=== PATIENT | female | born 1965 | race Caucasian/White ===

== ENCOUNTER → 2017-09-07 07:57 | Outpatient (CLI) | payer OTHER ==
[~2017-09-07 07:57] MED LIST: CATAFLAM50 MG PO; CIPRO500 MG PO; DICY20TA PO; FLEXERIL10 MG PO; FLONASE16 GM NS; INTESTINEX680 MG PO; LEVSIN/SL0.125 MG SL; PREVACID30 MG PO; PRILOSEC 20 MG PO; PRILOSEC10 MG PO; PRILOSEC2.5 MG; PRILOSEC2.5 MG PO; SYNTHROID125 MCG; SYNTHROID137 MCG PO; SYNTHROID150 MCG; SYNTHROID150 MCG PO; TOBREX 0.30.15 MG/DR OP; URETRON D-S TAB1 TAB PO; VOLTAREM 50 MG PO; ZANAFLEX2 MG PO; ZITHROMAX TRI-500 MG PO; ZYRTEC10 MG PO
== END | disposition home or self-care (01) ==
LOC: LAB 07:57
DX: E03.8 Other specified hypothyroidism (principal)

== ENCOUNTER → 2017-11-14 07:27 | Outpatient (CLI) | payer OTHER | END | disposition home or self-care (01) | LOC: LAB 07:27 | DX: N95.1 Menopausal and female climacteric states (principal); E78.5 Hyperlipidemia, unspecified; E03.9 Hypothyroidism, unspecified; M61.00 Myositis ossificans traumatica, unspecified site; N39.0 Urinary tract infection, site not specified ==

== ENCOUNTER 2017-11-23 09:01 | Outpatient (CLI) | payer OTHER | END 2017-11-23 09:11 | disposition home or self-care (01) | LOC: MAMO-SONO 09:01 | DX: Z12.31 Encounter for screening mammogram for malignant neoplasm of breast (principal); N60.12 Diffuse cystic mastopathy of left breast; N60.11 Diffuse cystic mastopathy of right breast ==

== ENCOUNTER 2017-12-16 15:10 | Outpatient (CLI) | payer OTHER | END 2017-12-16 15:36 | disposition home or self-care (01) | LOC: SONOGRAMA 15:10 | DX: N60.12 Diffuse cystic mastopathy of left breast (principal); N60.11 Diffuse cystic mastopathy of right breast ==

== ENCOUNTER 2018-01-09 07:10 | Outpatient (CLI) | payer OTHER | END 2018-01-09 10:51 | disposition home or self-care (01) | LOC: LAB 07:10 | DX: E03.8 Other specified hypothyroidism (principal); E11.65 Type 2 diabetes mellitus with hyperglycemia; E78.00 Pure hypercholesterolemia, unspecified ==

== ENCOUNTER 2018-01-17 10:06 | Outpatient (CLI) | payer OTHER | END 2018-01-17 10:17 | disposition home or self-care (01) | LOC: LAB 10:06 | DX: R50.9 Fever, unspecified (principal); J11.1 Influenza due to unidentified influenza virus with other respiratory manifestations ==

== ENCOUNTER → 2018-05-09 07:19 | Outpatient (CLI) | payer OTHER | END | disposition home or self-care (01) | LOC: LAB 07:19 | DX: E89.0 Postprocedural hypothyroidism (principal) ==

== ENCOUNTER 2018-06-20 09:34 | Outpatient (CLI) | payer OTHER | END 2018-06-20 18:58 | disposition home or self-care (01) | LOC: LAB 09:34 | DX: L50.8 Other urticaria (principal); E03.8 Other specified hypothyroidism ==

== ENCOUNTER 2018-06-29 10:24 | Emergency (ER) | payer OTHER ==
[~2018-06-29] VITALS: Ht 157.5 cm; Wt 68.0 kg
== END 2018-06-29 12:08 | disposition home or self-care (01) ==
LOC: ER 10:24
DX: M54.5 Low back pain (principal)

== ENCOUNTER → 2018-09-07 07:25 | Outpatient (CLI) | payer OTHER | END | disposition home or self-care (01) | LOC: LAB 07:25 | DX: E03.8 Other specified hypothyroidism (principal); E78.00 Pure hypercholesterolemia, unspecified ==

== ENCOUNTER 2018-11-30 08:00 | Outpatient (CLI) | payer OTHER | END 2018-11-30 15:00 | disposition home or self-care (01) | LOC: LAB 08:00 | DX: M81.0 Age-related osteoporosis without current pathological fracture (principal); E78.5 Hyperlipidemia, unspecified; E03.8 Other specified hypothyroidism; N39.0 Urinary tract infection, site not specified; N95.1 Menopausal and female climacteric states ==

== ENCOUNTER → 2018-12-05 | Outpatient (CLI) | payer OTHER | END | disposition home or self-care (01) | LOC: MAMO-SONO 14:13 | DX: N60.11 Diffuse cystic mastopathy of right breast (principal); N60.12 Diffuse cystic mastopathy of left breast; Z80.3 Family history of malignant neoplasm of breast; Z12.31 Encounter for screening mammogram for malignant neoplasm of breast ==

== ENCOUNTER → 2019-01-18 07:22 | Outpatient (CLI) | payer OTHER | END | disposition home or self-care (01) | LOC: LAB 07:22 | DX: E03.8 Other specified hypothyroidism (principal); E11.65 Type 2 diabetes mellitus with hyperglycemia ==

== ENCOUNTER → 2019-01-24 07:21 | Outpatient (CLI) | payer OTHER | END | disposition home or self-care (01) | LOC: LAB 07:21 | DX: E78.00 Pure hypercholesterolemia, unspecified (principal) ==

== ENCOUNTER → 2019-02-13 11:01 | Outpatient (CLI) | payer OTHER | END | disposition home or self-care (01) | LOC: LAB 10:37 | DX: J11.1 Influenza due to unidentified influenza virus with other respiratory manifestations (principal); A49.3 Mycoplasma infection, unspecified site ==

== ENCOUNTER 2019-03-12 07:22 | Emergency (ER) | payer OTHER ==
[~2019-03-12] VITALS: Ht 160 cm; Wt 79.4 kg
== END 2019-03-12 17:26 | disposition home or self-care (01) ==
LOC: ER 07:22
DX: K57.32 Diverticulitis of large intestine without perforation or abscess without bleeding (principal); R10.84 Generalized abdominal pain

== ENCOUNTER 2019-03-27 08:53 | Outpatient (CLI) | payer OTHER | END 2019-03-27 08:58 | disposition home or self-care (01) | LOC: LAB 08:53 | DX: E78.00 Pure hypercholesterolemia, unspecified (principal); E11.65 Type 2 diabetes mellitus with hyperglycemia; E03.8 Other specified hypothyroidism; E23.1 Drug-induced hypopituitarism ==

== ENCOUNTER 2019-05-16 08:06 | Outpatient (CLI) | payer OTHER | END 2019-05-16 16:20 | disposition home or self-care (01) | LOC: LAB 08:06 | DX: E03.8 Other specified hypothyroidism (principal) ==

== ENCOUNTER → 2019-07-09 07:24 | Outpatient (CLI) | payer OTHER | END | disposition home or self-care (01) | LOC: LAB 07:01 | DX: E03.8 Other specified hypothyroidism (principal) ==

== ENCOUNTER → 2019-08-21 16:37 | Outpatient (CLI) | payer OTHER | END | disposition home or self-care (01) | LOC: RAD 14:29 | DX: M19.042 Primary osteoarthritis, left hand (principal) ==

== ENCOUNTER → 2019-10-30 08:16 | Outpatient (CLI) | payer OTHER | END | disposition home or self-care (01) | LOC: LAB 08:16 | DX: E03.8 Other specified hypothyroidism (principal); E78.00 Pure hypercholesterolemia, unspecified; E11.65 Type 2 diabetes mellitus with hyperglycemia ==

== ENCOUNTER → 2019-11-27 07:30 | Outpatient (CLI) | payer OTHER | END | disposition home or self-care (01) | LOC: LAB 07:30 | DX: E03.8 Other specified hypothyroidism (principal); R00.2 Palpitations ==

== ENCOUNTER 2019-11-28 08:14 | Outpatient (CLI) | payer OTHER | END 2019-11-28 14:48 | disposition home or self-care (01) | LOC: RAD 08:14 | DX: R00.2 Palpitations (principal); Z12.31 Encounter for screening mammogram for malignant neoplasm of breast; E03.8 Other specified hypothyroidism ==

== ENCOUNTER 2019-12-06 11:34 | Outpatient (CLI) | payer OTHER | END 2019-12-06 11:50 | disposition home or self-care (01) | LOC: SONOGRAMA 11:34 | DX: E04.2 Nontoxic multinodular goiter (principal) ==

== ENCOUNTER → 2020-01-01 09:18 | Outpatient (CLI) | payer OTHER | END | disposition home or self-care (01) | LOC: LAB 12-31 10:01 → EDBD 09:18 → LAB 09:18 | PROVIDERS: ATTEND General Practice | DX: E03.8 Other specified hypothyroidism (principal) ==

== ENCOUNTER → 2020-01-24 08:16 | Outpatient (CLI) | payer OTHER | END | disposition home or self-care (01) | LOC: LAB 08:16 → EDBD 08:16 → LAB 14:38 | PROVIDERS: ATTEND Obstetrics & Gynecology Gynecology | DX: E78.49 Other hyperlipidemia (principal); M81.0 Age-related osteoporosis without current pathological fracture; N39.0 Urinary tract infection, site not specified; E03.8 Other specified hypothyroidism; N95.1 Menopausal and female climacteric states ==

== ENCOUNTER 2020-01-24 12:59 | Outpatient (CLI) | payer OTHER | END 2020-01-24 15:32 | disposition home or self-care (01) | LOC: SONOGRAMA 12:59 → EDBD 12:59 → SONOGRAMA 15:32 | PROVIDERS: ATTEND Obstetrics & Gynecology Gynecology | DX: N60.11 Diffuse cystic mastopathy of right breast (principal); N60.12 Diffuse cystic mastopathy of left breast; Z80.3 Family history of malignant neoplasm of breast ==

== ENCOUNTER → 2020-01-28 07:51 | Outpatient (CLI) | payer OTHER | END | disposition home or self-care (01) | LOC: LAB 01-25 16:20 | PROVIDERS: ATTEND General Practice | DX: R53.81 Other malaise (principal); M25.50 Pain in unspecified joint ==

== ENCOUNTER 2020-01-31 08:07 | Outpatient (CLI) | payer OTHER | END 2020-01-31 09:14 | disposition home or self-care (01) | LOC: SONOGRAMA 08:07 → MAMO-SONO 13:45 | PROVIDERS: ATTEND General Practice | DX: R10.84 Generalized abdominal pain (principal); R10.2 Pelvic and perineal pain ==

== ENCOUNTER 2020-03-07 06:00 | Day surgery (SDC) | payer OTHER | END 2020-03-07 09:55 | disposition home or self-care (01) | LOC: AMB-ENDOS 06:00 | PROVIDERS: ATTEND Colon & Rectal Surgery | DX: K57.32 Diverticulitis of large intestine without perforation or abscess without bleeding (principal); Z20.828 Contact with and (suspected) exposure to other viral communicable diseases ==

== ENCOUNTER 2020-04-15 08:00 | Outpatient (CLI) | payer OTHER ==
[~2020-04-15 08:00] MED LIST changes: +VOLTAREN100 GM TOP
== END 2020-04-15 15:00 | disposition home or self-care (01) ==
LOC: PPH VACUNA 08:00
DX: Z23 Encounter for immunization (principal)

== ENCOUNTER → 2020-05-01 07:43 | Outpatient (CLI) | payer OTHER | END | disposition home or self-care (01) | LOC: LAB 07:43 | PROVIDERS: ATTEND Obstetrics & Gynecology Gynecology | DX: E78.49 Other hyperlipidemia (principal); E03.8 Other specified hypothyroidism; D50.0 Iron deficiency anemia secondary to blood loss (chronic) ==

== ENCOUNTER 2020-05-19 07:46 | Outpatient (CLI) | payer OTHER | END 2020-05-19 15:00 | disposition home or self-care (01) | LOC: LAB 07:46 | PROVIDERS: ATTEND Internal Medicine | DX: E03.8 Other specified hypothyroidism (principal) ==

== ENCOUNTER → 2020-05-30 07:45 | Outpatient (CLI) | payer OTHER | END | disposition home or self-care (01) | LOC: LAB 07:45 | PROVIDERS: ATTEND Internal Medicine Hematology & Oncology | DX: D50.8 Other iron deficiency anemias (principal); R79.89 Other specified abnormal findings of blood chemistry; R74.02 Elevation of levels of lactic acid dehydrogenase [LDH]; K76.89 Other specified diseases of liver; D51.1 Vitamin B12 deficiency anemia due to selective vitamin B12 malabsorption with proteinuria; D51.0 Vitamin B12 deficiency anemia due to intrinsic factor deficiency; E03.8 Other specified hypothyroidism; E06.3 Autoimmune thyroiditis; R97.0 Elevated carcinoembryonic antigen [CEA]; R97.8 Other abnormal tumor markers; M32.8 Other forms of systemic lupus erythematosus; B20 Human immunodeficiency virus [HIV] disease; B17.8 Other specified acute viral hepatitis; Z11.59 Encounter for screening for other viral diseases; D72.818 Other decreased white blood cell count ==

== ENCOUNTER → 2020-07-10 08:25 | Outpatient (CLI) | payer OTHER | END | disposition home or self-care (01) | LOC: LAB 08:25 | PROVIDERS: ATTEND Internal Medicine | DX: E03.8 Other specified hypothyroidism (principal); E78.49 Other hyperlipidemia; I10 Essential (primary) hypertension; E55.9 Vitamin D deficiency, unspecified; E11.65 Type 2 diabetes mellitus with hyperglycemia ==

== ENCOUNTER 2020-09-16 07:53 | Emergency (ER) | payer OTHER ==
[~2020-09-16] VITALS: Ht 160 cm; Wt 78.0 kg
[2020-09-16] MEDS ORDERED: BACTRIM DS TAB1 EACH PO (08:53)
[2020-09-16] MEDS ORDERED: MUPIROCIN1 G1 TOP (08:53)
[2020-09-16] MEDS ORDERED: KETO10TA2 PO (08:53)
== END 2020-09-16 09:29 | disposition home or self-care (01) ==
LOC: ER 07:53
DX: L03.116 Cellulitis of left lower limb (principal)

== ENCOUNTER 2020-09-19 07:39 | Outpatient (CLI) | payer OTHER ==
[~2020-09-19 07:39] MED LIST changes: +BACTRIM DS TAB1 EACH PO; +KETO10TA2 PO; +MUPIROCIN1 G1 TOP
== END 2020-09-19 18:50 | disposition home or self-care (01) ==
LOC: LAB 07:39
PROVIDERS: ATTEND Internal Medicine
DX: E03.8 Other specified hypothyroidism (principal)

== ENCOUNTER → 2020-11-11 11:52 | Outpatient (CLI) | payer OTHER | END | disposition home or self-care (01) | LOC: LAB 11:26 | PROVIDERS: ATTEND Internal Medicine Hematology & Oncology | DX: I10 Essential (primary) hypertension (principal); D50.8 Other iron deficiency anemias; R79.89 Other specified abnormal findings of blood chemistry; R74.02 Elevation of levels of lactic acid dehydrogenase [LDH]; K76.89 Other specified diseases of liver; D55.0 Anemia due to glucose-6-phosphate dehydrogenase [G6PD] deficiency; D51.8 Other vitamin B12 deficiency anemias; E89.0 Postprocedural hypothyroidism; D72.818 Other decreased white blood cell count ==

== ENCOUNTER 2020-11-25 14:25 | Outpatient (CLI) | payer OTHER | END 2020-11-25 14:33 | disposition home or self-care (01) | LOC: SONOGRAMA 14:25 | PROVIDERS: ATTEND Internal Medicine | DX: E04.2 Nontoxic multinodular goiter (principal) ==

== ENCOUNTER → 2020-12-02 07:50 | Outpatient (CLI) | payer OTHER | END | disposition home or self-care (01) | LOC: LAB 07:50 | PROVIDERS: ATTEND Internal Medicine | DX: E55.9 Vitamin D deficiency, unspecified (principal); I10 Essential (primary) hypertension; E78.49 Other hyperlipidemia; E03.8 Other specified hypothyroidism; E24.0 Pituitary-dependent Cushing's disease ==

== ENCOUNTER 2020-12-08 14:19 | Outpatient (CLI) | payer OTHER | END 2020-12-08 14:28 | disposition home or self-care (01) | LOC: MAMO-SONO 14:19 | PROVIDERS: ATTEND Obstetrics & Gynecology Gynecology | DX: N60.11 Diffuse cystic mastopathy of right breast (principal); N60.12 Diffuse cystic mastopathy of left breast ==

== ENCOUNTER 2020-12-23 07:31 | Outpatient (CLI) | payer OTHER | END 2020-12-23 07:34 | disposition home or self-care (01) | LOC: LAB 07:31 | PROVIDERS: ATTEND Specialist | DX: R79.0 Abnormal level of blood mineral (principal); Z01.818 Encounter for other preprocedural examination; E53.8 Deficiency of other specified B group vitamins; E55.9 Vitamin D deficiency, unspecified; Z11.4 Encounter for screening for human immunodeficiency virus [HIV]; M40.00 Postural kyphosis, site unspecified; R63.4 Abnormal weight loss; K73.8 Other chronic hepatitis, not elsewhere classified; J34.89 Other specified disorders of nose and nasal sinuses; Z32.00 Encounter for pregnancy test, result unknown; D52.8 Other folate deficiency anemias; E53.0 Riboflavin deficiency; E78.00 Pure hypercholesterolemia, unspecified; J15.0 Pneumonia due to Klebsiella pneumoniae; R94.31 Abnormal electrocardiogram [ECG] [EKG] ==

== ENCOUNTER 2020-12-24 08:54 | Outpatient (CLI) | payer OTHER | END 2020-12-24 15:00 | disposition home or self-care (01) | LOC: EKG 08:54 | PROVIDERS: ATTEND Specialist | DX: R94.31 Abnormal electrocardiogram [ECG] [EKG] (principal) ==

== ENCOUNTER 2020-12-26 07:10 | Emergency (ER) | payer OTHER ==
[~2020-12-26] VITALS: Ht 162.6 cm; Wt 79.8 kg
[2020-12-26] MEDS ORDERED: SYNTHROID137 MCG PO (07:18)
== END 2020-12-26 11:03 | disposition home or self-care (01) ==
LOC: ER 07:10
DX: M54.5 Low back pain (principal)

== ENCOUNTER → 2020-12-31 07:47 | Outpatient (CLI) | payer OTHER | END | disposition home or self-care (01) | LOC: LAB 07:47 | PROVIDERS: ATTEND Internal Medicine | DX: E03.8 Other specified hypothyroidism (principal) ==

== ENCOUNTER 2021-01-27 11:04 | Outpatient (CLI) | payer OTHER | END 2021-01-27 11:06 | disposition home or self-care (01) | LOC: SONOGRAMA 11:04 | PROVIDERS: ATTEND Obstetrics & Gynecology Gynecology | DX: N60.11 Diffuse cystic mastopathy of right breast (principal); N60.12 Diffuse cystic mastopathy of left breast ==

== ENCOUNTER 2021-01-29 08:00 | Outpatient (CLI) | payer OTHER | END 2021-01-29 19:00 | disposition home or self-care (01) | LOC: LAB 08:00 | PROVIDERS: ATTEND Specialist | DX: J34.89 Other specified disorders of nose and nasal sinuses (principal); Z01.818 Encounter for other preprocedural examination; R79.0 Abnormal level of blood mineral; Z11.4 Encounter for screening for human immunodeficiency virus [HIV]; R63.4 Abnormal weight loss; K73.8 Other chronic hepatitis, not elsewhere classified; D52.0 Dietary folate deficiency anemia; E78.00 Pure hypercholesterolemia, unspecified ==

== ENCOUNTER → 2021-02-09 07:59 | Outpatient (CLI) | payer OTHER | END | disposition home or self-care (01) | LOC: LAB 02-07 15:06 | DX: E03.8 Other specified hypothyroidism (principal) ==

== ENCOUNTER → 2021-02-16 07:24 | Outpatient (CLI) | payer OTHER | END | disposition home or self-care (01) | LOC: LAB 07:24 | DX: E07.89 Other specified disorders of thyroid (principal) ==

== ENCOUNTER → 2021-03-23 07:33 | Outpatient (CLI) | payer OTHER | END | disposition home or self-care (01) | LOC: LAB 07:33 | PROVIDERS: ATTEND Internal Medicine | DX: E11.65 Type 2 diabetes mellitus with hyperglycemia (principal); E78.49 Other hyperlipidemia; I10 Essential (primary) hypertension; E03.8 Other specified hypothyroidism ==

== ENCOUNTER 2021-04-10 07:32 | Outpatient (CLI) | payer OTHER | END 2021-04-10 08:03 | disposition home or self-care (01) | LOC: LAB 07:32 | PROVIDERS: ATTEND Internal Medicine Hematology & Oncology | DX: E89.0 Postprocedural hypothyroidism (principal); D50.8 Other iron deficiency anemias; R79.89 Other specified abnormal findings of blood chemistry; I10 Essential (primary) hypertension; R74.02 Elevation of levels of lactic acid dehydrogenase [LDH]; K76.89 Other specified diseases of liver; D72.818 Other decreased white blood cell count ==

== ENCOUNTER 2021-04-28 08:00 | Outpatient (CLI) | payer OTHER | END 2021-04-28 14:12 | disposition home or self-care (01) | LOC: PPH VACUNA 08:00 | PROVIDERS: ATTEND Emergency Medicine Pediatric Emergency Medicine | DX: Z23 Encounter for immunization (principal) ==

== ENCOUNTER 2021-05-07 10:00 | Outpatient (CLI) | payer OTHER | END 2021-05-07 14:30 | disposition home or self-care (01) | LOC: PPH VACUNA 10:00 | PROVIDERS: ATTEND Emergency Medicine Pediatric Emergency Medicine | DX: Z23 Encounter for immunization (principal) ==

== ENCOUNTER 2021-05-18 09:00 | Outpatient (CLI) | payer OTHER | END 2021-05-18 09:04 | disposition home or self-care (01) | LOC: NUCLEAR 09:00 | PROVIDERS: ATTEND Internal Medicine Cardiovascular Disease | DX: I87.2 Venous insufficiency (chronic) (peripheral) (principal) ==

== ENCOUNTER → 2021-05-22 06:08 | Outpatient (CLI) | payer OTHER | END | disposition home or self-care (01) | LOC: LAB 06:08 | PROVIDERS: ATTEND Internal Medicine | DX: E03.8 Other specified hypothyroidism (principal); I10 Essential (primary) hypertension; E11.65 Type 2 diabetes mellitus with hyperglycemia; E78.49 Other hyperlipidemia ==

== ENCOUNTER 2021-05-22 07:32 | Outpatient (CLI) | payer OTHER | END 2021-05-22 10:34 | disposition home or self-care (01) | LOC: SONOGRAMA 07:32 | PROVIDERS: ATTEND Internal Medicine | DX: E04.2 Nontoxic multinodular goiter (principal) ==

== ENCOUNTER → 2021-06-30 08:22 | Outpatient (CLI) | payer OTHER | END | disposition home or self-care (01) | LOC: LAB 08:22 | DX: I10 Essential (primary) hypertension (principal); E03.8 Other specified hypothyroidism ==

== ENCOUNTER 2021-08-03 07:24 | Emergency (ER) | payer OTHER ==
[~2021-08-03] VITALS: Ht 162.6 cm; Wt 71.7 kg
== END 2021-08-03 12:04 | disposition home or self-care (01) ==
LOC: ER 07:24
DX: U07.1 COVID-19 (principal)

== ENCOUNTER 2021-08-20 09:45 | Outpatient (CLI) | payer OTHER | END 2021-08-20 09:52 | disposition home or self-care (01) | LOC: RAD 09:45 | PROVIDERS: ATTEND Physical Medicine & Rehabilitation | DX: M76.51 Patellar tendinitis, right knee (principal) ==

== ENCOUNTER → 2021-08-24 09:28 | Outpatient (CLI) | payer OTHER | END | disposition home or self-care (01) | LOC: LAB 08-21 14:47 | DX: E03.8 Other specified hypothyroidism (principal); E11.65 Type 2 diabetes mellitus with hyperglycemia; E55.9 Vitamin D deficiency, unspecified; E78.49 Other hyperlipidemia; I10 Essential (primary) hypertension; N30.90 Cystitis, unspecified without hematuria ==

== ENCOUNTER → 2024-10-17 | Outpatient (CLI) | payer OTHER ==
[~2024-10-17] MED LIST changes: +CELECOXIB200 MG PO; +METAXALONE800 MG PO; +NORFLEX100MG PO
== END | disposition home or self-care (01) ==
LOC: SONOGRAMA 07:48
DX: R10.2 Pelvic and perineal pain (principal)

== ENCOUNTER 2024-11-09 07:32 | Outpatient (CLI) | payer OTHER | END 2024-11-09 07:42 | disposition home or self-care (01) | LOC: SONOGRAMA 07:32 | PROVIDERS: ATTEND Obstetrics & Gynecology Gynecology | DX: R10.11 Right upper quadrant pain (principal); R10.2 Pelvic and perineal pain ==